=== PATIENT | male | born 1955 | race African-American/Black ===

== ENCOUNTER 2017-06-21 08:23 | Emergency (ER) | payer OTHER ==
[~2017-06-21] VITALS: Ht 160 cm; Wt 55.0 kg
[~2017-06-21 08:23] MED LIST: HYDROCHLOROT12.5 MG PO; LISINOPRIL10 MG PO; NAPROSYN500 MG OR; NO HOME MEDS; PENICILLN VK500 MG PO
[2017-06-21] MEDS ORDERED: MEDDOSEPAK PO (08:58)
[2017-06-21 09:03] VITALS: BP 148/69
== END 2017-06-21 09:06 | disposition home or self-care (01) | DRG 607 ==
LOC: ED 08:23
DX: L50.9 Urticaria, unspecified (principal); I10 Essential (primary) hypertension

== ENCOUNTER 2019-10-19 00:38 | Emergency (ER) | payer SELFPAY ==
[~2019-10-19] VITALS: Ht 157.5 cm; Wt 63.6 kg
[~2019-10-19 00:38] MED LIST changes: +MEDDOSEPAK PO
[2019-10-19 01:50] VITALS: BP 176/70
== END 2019-10-19 01:50 | disposition home or self-care (01) | DRG 918 ==
LOC: ED 00:38
DX: T65.891A Toxic effect of other specified substances, accidental (unintentional), initial encounter (principal); S05.8X2A Other injuries of left eye and orbit, initial encounter; S05.8X1A Other injuries of right eye and orbit, initial encounter; I10 Essential (primary) hypertension; X58.XXXA Exposure to other specified factors, initial encounter

== ENCOUNTER 2020-03-22 09:51 | Emergency (ER) | payer SELFPAY ==
[~2020-03-22] VITALS: Ht 157.5 cm; Wt 68.2 kg
[2020-03-22 10:48] LABS: HEMATOCRIT 41.8 % (39.0-50.0); HEMOGLOBIN 13.4 g/dl (14.0-18.0); IMMATURE GRANULOCYTES 0.3 % (0.0-5.0); MEAN CELL VOLUME 89.9 fL CALC (80.0-100.0); MEAN CORPUSCULAR HGB 28.8 pG CALC (26.0-32.0); MEAN CORPUSCULAR HGB CONC 32.1 g/dL CAL (32.0-36.0); NEUT# 1.67 thou/uL (1.82-7.42); RED BLOOD COUNT 4.65 mill/uL (4.70-6.10); RED CELL DISTRI WIDTH 13.6 % (11.5-15.5)
[2020-03-22 11:04] LABS: ALBUMIN 4.4 g/dL (3.2-5.0); ALKALINE PHOSPHATASE 66 u/l (38-126); BUN 15 mg/dL (8-23); BUN/CREATININE RATIO 17 (12-20 (CALC)); CHLORIDE 107 mmol/l (95-108); CREATININE 0.9 mg/dL (0.7-1.3); GFR > 60 ML/MIN (>=60 (CALC)); GFR FOR AFR.AMER. > 60 ML/MIN (>=60 (CALC)); LIPASE 235 u/l (23-300); POTASSIUM 4.5 mmol/l (3.5-5.1); SGOT/AST 39 u/l (19-48); SODIUM 140 mmol/l (137-146); TOTAL PROTEIN 8.4 g/dL (6.3-8.2)
[2020-03-22 11:15] LABS: ANION GAP 10 (6-22 (CALC)); BILIRUBIN, TOTAL 1.5 mg/dL (0.0-1.4); CARBON DIOXIDE 28 mmol/l (22-30)
[2020-03-22 11:27] LABS: URINE BILIRUBIN - DIPSTICK NEGATIVE (NEGATIVE); URINE BLOOD DIPSTICK TRACE-INTACT (NEGATIVE); URINE COLOR YELLOW; URINE GLUCOSE - DIPSTICK NEGATIVE (NEGATIVE); URINE KETONE NEGATIVE (NEGATIVE); URINE LEUK ESTERASE NEGATIVE (NEGATIVE); URINE NITRITE - DIPSTICK NEGATIVE (Negative); URINE PH 6.5 (4.5-8.0); URINE PROTEIN - DIPSTICK NEGATIVE (NEG-TRACE); URINE UROBILINOGEN - DIPSTICK 0.2 E.U./dL (0.2)
[2020-03-22 12:53] VITALS: BP 189/82
== END 2020-03-22 13:03 | disposition home or self-care (01) | DRG 313 ==
LOC: ED 09:51
PROVIDERS: Family Medicine
DX: R07.89 Other chest pain (principal); I10 Essential (primary) hypertension; W17.89XA Other fall from one level to another, initial encounter; Y99.0 Civilian activity done for income or pay
CPT/HCPCS: Q9967

== ENCOUNTER 2020-12-21 10:46 | Emergency (ER) | payer SELFPAY ==
[~2020-12-21] VITALS: Ht 157.5 cm; Wt 54.5 kg
[2020-12-21] MEDS ORDERED: CONZIP100 MG PO (12:59)
[2020-12-21] MEDS ORDERED: BP MEDICATION (13:34)
[2020-12-21 13:40] VITALS: BP 131/66
== END 2020-12-21 13:40 | disposition home or self-care (01) | DRG 552 ==
LOC: ED 10:46
DX: M54.5 Low back pain (principal); M47.816 Spondylosis without myelopathy or radiculopathy, lumbar region; I10 Essential (primary) hypertension

== ENCOUNTER 2021-05-23 19:21 | Emergency (ER) | payer SELFPAY ==
[~2021-05-23] VITALS: Ht 157.5 cm; Wt 64.0 kg
[~2021-05-23 19:21] MED LIST changes: +BP MEDICATION; +CONZIP100 MG PO
[2021-05-23 20:20] VITALS: BP 130/73
== END 2021-05-23 20:51 | disposition left against medical advice (07) | DRG 951 ==
LOC: ED 19:21 → LWOBS 20:51
DX: Z53.21 Procedure and treatment not carried out due to patient leaving prior to being seen by health care provider (principal)

== ENCOUNTER 2021-12-26 08:57 | Day surgery (SDC) | payer OTHER ==
[~2021-12-26] VITALS: Ht 157.5 cm; Wt 56.7 kg
[2021-12-26] MEDS ORDERED: TIZANIDINE HYDRO4 M1 PO (09:41)
[2021-12-26] MEDS ORDERED: MOBIC7.5 M1 PO (09:41)
[2021-12-26] MEDS ORDERED: NORVASC5 M1 PO (09:43)
[2021-12-26] MEDS ORDERED: AMOXICILLIN500 MG PO (09:43)
[2021-12-26 10:57] VITALS: BP 138/77
== END 2021-12-26 11:16 | disposition home or self-care (01) ==
LOC: ORM 08:57
PROVIDERS: ATTEND Physical Medicine & Rehabilitation
DX: M53.3 Sacrococcygeal disorders, not elsewhere classified (principal); G89.4 Chronic pain syndrome
CPT/HCPCS: J3490; Q9967